=== PATIENT | female | born 1970 | race Hispanic/Latino ===

== ENCOUNTER 2017-06-09 08:22 | Outpatient (CLI) | payer OTHER ==
--- NOTE | 2017-06-09 11:32 | MRI ---
MRI OF THE ABDOMEN WITH AND WITHOUT IV CONTRAST: Indication: Weight gain with history of hepatic cysts. Comparison: Hepatic duplex ultrasound, 11-30-16. Technique: Multiplanar, multisequence MR images were obtained of the abdomen utilizing a liver mass p rotocol and 16 cc of MultiHance. FINDINGS: As seen on the comparison ultrasound examination is a 9 cm cyst within segment 5 of the right hepatic lobe. There is an additional 1.1 cm cyst within segment 5 of the right hepatic lobe. There are addit ional smaller subcentimeter cysts within the right hepatic dome and peripheral right hepatic lobe. No suspicious arterial enhancing lesion is seen within the liver. There is a small subcentimeter cyst s een within the posterior right mid kidney. Adrenal glands, pancreas, and spleen appear within normal limits. No marrow signal abnormality is grossly evident. IMPRESSION: Multiple hepatic cysts. The largest seen measuring 9 cm within the region of segment of the right hep atic lobe. This is no appreciably changed in size from a recent comparison duplex ultrasound of the iver dated 11-30-16. POS: [facility]
== END 2017-06-09 08:23 | disposition home or self-care (01) ==
LOC: MRI 08:22
PROVIDERS: ATTEND Internal Medicine
DX: K76.89 Other specified diseases of liver (principal); E66.3 Overweight
CPT/HCPCS: 74183